=== PATIENT | male | born 1970 | race Caucasian/White ===

== ENCOUNTER 2024-04-21 15:40 | Emergency (ER) | payer SELFPAY ==
[2024-04-21 15:41] VITALS: BP 152/94; PULSE 82; RESP 16; TEMP 36.1; O2SAT 96; BMI 30.1
--- NOTE | 2024-04-21 16:14 | RAD_ITS ---
STUDY: X-RAY - LEFT SHOULDER REASON FOR EXAM: Male, 54 years old. Injury/Pain TECHNIQUE: 4 view(s) of the shoulder. COMPARISON: None. FINDINGS: Mildly narrowed glenohumeral articulation. Normal acromioclavicular joint. Normal acromion. Normal humeral head and visualized proximal humerus. The soft tissue structures are unremarkable. Normal visualized pulmonary apex. RAD/Shoulder min 2 Views IMPRESSION: Mild degenerative changes. No acute fracture or dislocation Electronically Signed: Tristin Aleman MD at 17:43 EST ,
--- NOTE | 2024-04-21 16:14 | CT_ITS ---
STUDY: CT CERVICAL SPINE WITHOUT CONTRAST REASON FOR EXAM: Male, 54 years old. Injury/Pain RADIATION DOSAGE (If Supplied By Facility): CTDIvol = ( 26.60 ) mGy, DLP = ( 466.65 ) mGycm TECHNIQUE: High resolution transaxial imaging was performed without contrast material. Sagittal and coronal images were reconstructed. Individualized dose optimization techniques were used for this CT. COMPARISON: None FINDINGS: Normal craniovertebral junction. Normal anterior atlantoaxial articulation. Normal odontoid process. Normal cervical lordosis. Normal vertebral bodies and posterior osseous elements. C2-3: Normal endplates. Normal disc height and morphology. Normal central canal and intervertebral neuroforamina. C3-4: Normal endplates. Normal disc height and morphology. Normal central canal and intervertebral neuroforamina. C4-5: Normal endplates. Normal disc height and morphology. Normal central canal and intervertebral neuroforamina. C5-6: Narrowed disc space and minor endplate spurring.. Normal central canal. Moderate bilateral neural foraminal encroachment secondary to bony hypertrophy. C6-7: Narrowed disc space and minor endplate spurring. Normal central canal. Mild bilateral neural foraminal encroachment secondary to bony hypertrophy. C7-T1: Normal endplates. Normal disc height and morphology. Normal central canal and intervertebral neuroforamina. Normal visualized soft tissue structures. CT/Spine Cervical without Contras IMPRESSION: Mild spondylosis most pronounced at C5-6 and C6-7. No acute fracture or subluxation. Electronically Signed: Tristin Aleman MD at 17:36 EST ,
--- NOTE | 2024-04-21 16:14 | CT_ITS ---
STUDY: CT BRAIN WITHOUT CONTRAST REASON FOR EXAM: Male, 54 years old. Injury/Pain RADIATION DOSAGE (If Supplied By Facility): CTDIvol = ( 44.99 ) mGy, DLP = ( 779.24 ) mGycm TECHNIQUE: Transaxial CT imaging of the brain was performed without administration of intravenous contrast material. Individualized dose optimization techniques were used for this CT. COMPARISON: No relevant priors. FINDINGS: Normal soft tissue structures. Normal calvarium. Normal size ventricles and extra-axial spaces for the patient''s age. Normal white matter tracts of the cerebral hemispheres. Normal basal ganglia and thalami. Normal brainstem. Normal cerebellum. There is no intracranial hemorrhage. There are no findings of an acute ischemic infarction. There is moderate to severe mucosal thickening of the bilateral maxillary and ethmoid sinuses CT/Brain/Head without Contrast IMPRESSION: Normal unenhanced CT scan of the brain. Moderate to severe bilateral maxillary and ethmoid sinus disease likely chronic Electronically Signed: Tristin Aleman MD at 17:34 EST Reading Location ID and State: [facility] / [place] Tel , Service support ,
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
--- NOTE | 2024-04-21 16:30 | RAD_ITS ---
STUDY: X-RAY - LUMBAR SPINE REASON FOR EXAM: Male, 54 years old. Injury/Pain TECHNIQUE: AP and lateral view(s) of the lumbar spine were obtained. COMPARISON: None FINDINGS: Normal lumbar lordosis. There is mild dextro scoliosis or splinting secondary to muscle spasm. There is a normal alignment of the vertebrae. No evidence for acute fracture or subluxation. No lytic or sclerotic bony lesions.. Mild narrowing of L4-5 disc space and minor multilevel endplate spurring The soft tissue structures are unremarkable. RAD/Lumbar Spine 2 or 3 Views IMPRESSION: Early spondylotic changes. No acute fracture or subluxation. Electronically Signed: Tristin Aleman MD at 17:50 EST ,
[2024-04-21 18:05] VITALS: BP 131/75; PULSE 75; RESP 18; TEMP 36.3; O2SAT 98
== END 2024-04-21 18:07 | disposition home or self-care (01) ==
PROVIDERS: Emergency Provider Emergency Medicine; Visit Provider Emergency Medicine
DX: S16.1XXA Strain of muscle, fascia and tendon at neck level, initial encounter (principal); S39.012A Strain of muscle, fascia and tendon of lower back, initial encounter; S40.012A Contusion of left shoulder, initial encounter; V48.5XXA Car driver injured in noncollision transport accident in traffic accident, initial encounter; R51.9 Headache, unspecified
CPT/HCPCS: 70450; 72100; 72125; 73030; 99284